=== PATIENT | male | born 1975 | race Caucasian/White ===

== ENCOUNTER 2024-05-02 09:58 | Observation (INO) | payer BC, SELFPAY ==
[2024-05-02 10:22] VITALS: BMI 27.0
[2024-05-02] MEDS ORDERED: Acetaminophen 325 MG TAB PO PRN (10:51)
[2024-05-02 12:31] LABS: Hematocrit 33.3 % (42.0-52.0)
[2024-05-02 12:57] LABS: Troponin I Less than 0.010 ng/mL (< 0.028)
[2024-05-02] MEDS: Sodium Chloride 0.9% 1,000 ML IV SCH ×2 (16:17→17:41)
[2024-05-02 19:35] LABS: Hematocrit 30.2 % (42.0-52.0); Hemoglobin 10.1 g/dL (14.0-18.0)
[2024-05-02] MEDS: Pantoprazole 40 MG VIAL IVP SCH (20:36)
[2024-05-03] MEDS: Nicotine 21 MG PATCH TD SCH (00:06)
[2024-05-03 03:53] LABS: #Basophils 0.07 10x3/uL (0.0-0.2); %Basophils 1.1 % (0.0-1.0); %Eosinophils 7.6 % (0.0-10.0); %Lymphocytes 36.4 % (21.0-51.0); %Monocytes 8.5 % (0.0-10.0); %Neutrophils 46.1 % (42.0-75.0); Hematocrit 32.5 % (42.0-52.0); Hemoglobin 10.5 g/dL (14.0-18.0); Mean Corpuscular HGB CONC 32.3 g/dL (32.0-36.0); Mean Corpuscular Hemoglobin 30.3 pg (27.0-31.0); Mean Corpuscular Volume 93.9 fL (78.0-98.0); Mean Platelet Volume 9.1 fL (7.4-10.4); Platelet Count 250 10x3/uL (130-400); RBC Distribution Width 12.1 % (11.5-14.5); Red Blood Cell (RBC) Count 3.46 mill/uL (4.70-6.10)
[2024-05-03 04:10] LABS: Anion Gap 8 mmol/L (10-20); BUN (Urea Nitrogen) 13 mg/dL (8.9-20.6); Calc. Creatinine Clearance 127 mL/min (70-130); Calcium 7.8 mg/dL (7.8-10.44); Carbon Dioxide 23 mmol/L (22-29); Chloride 113 mmol/L (98-107); Estimated GFR 107; Glucose 106 mg/dL (70-105); Potassium 4.1 mmol/L (3.5-5.1); Sodium 140 mmol/L (136-145)
[2024-05-03] MEDS ORDERED: fentaNYL 50 mcg/mL 1 mL Vial ONE (13:52)
[2024-05-03] MEDS ORDERED: Lidocaine 2% PF 5 ML VIAL ONE (13:52)
[2024-05-03] MEDS ORDERED: GLYCOPYRROLATE/PF 0.2 MG/ML VIAL ONE (13:52)
[2024-05-03] MEDS ORDERED: PHENYLEPHRINE-NS 100 MCG/ML 10 ML SYRINGE ONE (13:52)
[2024-05-03] MEDS ORDERED: PROPOFOL 40 ML ONE (13:52)
[2024-05-03] MEDS ORDERED: Midazolam HCl 2 mg/2 ml Vial ONE (13:52)
[2024-05-03 16:10] VITALS: BP 106/66; TEMP 97.3
[2024-05-03] MEDS ORDERED: Pantoprazole DR 40 MG TAB PO SCH (21:00)
== END 2024-05-03 19:09 | disposition home or self-care (01) ==
LOC: INTOOBSV 09:58 → OBS 09:58
PROVIDERS: ADMIT Internal Medicine; ATTEND Student in an Organized Health Care Education/Training Program
PROC: 0DB98ZX Excision of Duodenum, Via Natural or Artificial Opening Endoscopic, Diagnostic (ICD-10-PCS; principal; 2024-05-03)
PROC: 0DB58ZX Excision of Esophagus, Via Natural or Artificial Opening Endoscopic, Diagnostic (ICD-10-PCS; 2024-05-03)
DX: K92.0 Hematemesis (principal); D64.9 Anemia, unspecified; K21.9 Gastro-esophageal reflux disease without esophagitis; F17.210 Nicotine dependence, cigarettes, uncomplicated; F10.10 Alcohol abuse, uncomplicated; Y90.9 Presence of alcohol in blood, level not specified; K29.50 Unspecified chronic gastritis without bleeding
CPT/HCPCS: 36415; 80048; 84484; 88305; 96376; G0378; J2250; J2470; J2704; J3010; J3490